=== PATIENT | male | born 1995 | race Caucasian/White ===

== ENCOUNTER 2019-04-17 23:02 | Emergency (ER) | payer OTHER, SELFPAY ==
[2019-04-17 23:06] VITALS: BP 141/82; PULSE 67; RESP 16; TEMP 36.2; O2SAT 99
[2019-04-18 00:29] VITALS: BP 138/76; PULSE 72; RESP 16; TEMP 36.7; O2SAT 99
--- NOTE | 2019-04-18 00:36 | ED.EYEPROB ---
HPI - Eye Problem General Chief complaint: Eye Problems Stated complaint: foreign body eye Time Seen by Provider: 04/18/19 00:24 Source: patient and RN notes reviewed Mode of arrival: ambulatory Limitations: no limitations History of Present Illness HPI Narrative: Pt is a 23 y/o male who presents to the ED with c/o rt eye pain starting this morning. He notes that he worked with dry [employer] last week, and states that he may have gotten residue from the dry wall in his rt eye. Pt notes that he woke up this morning with pain in his rt eye, stating that it feels as though there is something stuck in the superior aspect of his rt eye. He also reports redness and a watery discharge from his rt eye, but denies any visual changes, fever, or chills. chief complaint: eye pain Onset (ago): day(s) (1) Onset description: awoke with symptoms Location: right eye Eye Symptoms: redness and discharge (watery) Associated symptoms: none Related Data Allergies Allergy/AdvReac Type Severity Reaction Status Date / Time No Known Allergies Allergy Unverified 08/19/16 12:19 Review of Systems Review of Systems: All systems reviewed & are unremarkable except as noted in HPI and below Constitutional: Constitutional: Denies chills and Denies fever(s) Eyes: Eyes: Denies change in vision, Reports eye discharge (watery discharge from rt eye), Reports eye pain (pain in rt eye) and Reports other (redness in rt eye) PMFSH Past Medical History Medical History Foot fracture, left Pharyngitis Surgical History Surgical History No significant past surgical history Social History Social History Smoking status: Never smoker Exam Const: General: healthy appearing and no acute distress Nutritional Appearance: well nourished Eyes: Sclera: scleral abnormality (scleral injection) right Direct Ophthalmoscopy: other (no fluoroscein uptake) Resp: Effort & Inspection: normal respiratory effort Auscultation: clear to auscultation bilaterally Cardio: Rate: regular rate Rhythm: regular rhythm Heart sounds: no murmurs Back/Spine/Pelvis: Back: other (Full ROM) Skin: General skin exam: normal color, dry skin and other (warm) Neuro: General: patient oriented x3 (alert) Speech: normal speech Extrem: General: full ROM Psych: Mental Status: mental status grossly normal Affect: normal affect Course Vital Signs Vital signs: Vital Signs Temperature 36.2 C L 04/17/19 23:06 Pulse Rate 67 04/17/19 23:06 Respiratory Rate 16 04/17/19 23:06 Blood Pressure 141/82 H 04/17/19 23:06 Pulse Oximetry 99 04/17/19 23:06 Temperature 36.2 C L 04/17/19 23:06 Pulse Rate 67 04/17/19 23:06 Respiratory Rate 16 04/17/19 23:06 Blood Pressure 141/82 H 04/17/19 23:06 Pulse Oximetry 99 04/17/19 23:06 MDM - Eye Problem MDM Narrative Medical decision making narrative: No specific areas of up[take. Most likely conjunctivitis. No contact use. Will start on erythromycin. Differential Diagnosis Differential diagnosis: Likely corneal abrasion, conjunctivitis, corneal ulcer and other Medical Records Attestation: I reviewed the patient's medical records. Discharge Plan Discharge Clinical Impression: Acute conjunctivitis of right eye Qualifiers: Acute conjunctivitis type: unspecified Qualified Code(s): H10.31 - Unspecified acute conjunctivitis, right eye Patient Disposition: Home, Self-Care Condition: Stable Instructions: Antibiotic Form, Conjunctivitis (ED) Prescriptions: New erythromycin 5 mg/gram (0.5 %) ointment 0.5 inch EACH EYE QID 5 Days Qty: 3.5 RF: 0 Follow-up/Referrals: PHYSICIAN,INTERNAL INVESTIGATOR [Non-Staff] -
[2019-04-18 01:36] VITALS: BP 142/86; PULSE 61; RESP 16; TEMP 36.6; O2SAT 100
== END 2019-04-18 01:37 | disposition home or self-care (01) ==
PROVIDERS: Emergency Provider Emergency Medicine
DX: H10.31 Unspecified acute conjunctivitis, right eye (principal)
CPT/HCPCS: 99283; A9270